=== PATIENT | male | born 1985 | race African-American/Black ===

== ENCOUNTER 2017-01-27 10:22 | Emergency (ER) | payer SELFPAY ==
[~2017-01-27] VITALS: Ht 172.7 cm; Wt 91.0 kg
[2017-01-27] MEDS ORDERED: HYDROCODONE/ACETAMINOPHEN 5/325MG TABLET PO ONE (11:30)
[2017-01-27] MEDS ORDERED: TETANUS, DIPHTHERIA, PERTUSSIS VAC/PF 0.5ML (>7YR OLD) IM ONE (11:30)
[2017-01-27 11:44] VITALS: BP 116/95
== END 2017-01-27 15:00 | disposition home or self-care (01) ==
LOC: ER 11:26
DX: S80.02XA Contusion of left knee, initial encounter (principal); F12.10 Cannabis abuse, uncomplicated; F17.200 Nicotine dependence, unspecified, uncomplicated; V87.8XXA Person injured in other specified noncollision transport accidents involving motor vehicle (traffic), initial encounter; Y93.89 Activity, other specified; Y99.8 Other external cause status; Y92.89 Other specified places as the place of occurrence of the external cause
CPT/HCPCS: 73560; 99284; Z7610; 90715